=== PATIENT | female | born 1965 | race Caucasian/White ===

== ENCOUNTER 2021-06-25 23:14 | Emergency (ER) | payer OTHER, MEDICARE, SELFPAY ==
[2021-06-25 23:15] VITALS: BP 147/96; PULSE 89; RESP 16; TEMP 36.6; O2SAT 98; BMI 33.2
[2021-06-25 23:20] VITALS: BMI 33.2
--- NOTE | 2021-06-25 23:21 | XR_ITS ---
PROCEDURE INFORMATION: Exam: XR Left Wrist Exam date and time: 06/25/2021 11:27 PM Age: 55 years old Clinical indication: Injury or trauma; Fall; Sprain or strain; Wrist; Left; Additional info: Fall injury pain in wrist TECHNIQUE: Imaging protocol: XR Left wrist. Views: 3 or more views. COMPARISON: No relevant prior studies available. FINDINGS: Bones/joints: On the lateral view a lucency is noted in the region of the triquetral bone suspicious for a fracture without significant displacement. Subchondral lucency with a thin sclerotic margin is noted at the distal radius with irregularity suggestive of a prior injury. The scapholunate interval is somewhat prominent but not significantly widened. No other definite fractures are identified. Soft tissues: Soft tissue swelling is present without foreign body or abnormal gas. IMPRESSION: Acute appearing lucency of the triquetrum bone on the lateral view suspicious for fracture. Findings suggestive of prior trauma to the distal radius with some irregularity that might represent an acute on chronic injury. Findings were discussed with EDGAR SAXENA at 06/26/2021 1:17 AM EDT.
--- NOTE | 2021-06-25 23:22 | XR_ITS ---
PROCEDURE INFORMATION: Exam: XR Left Forearm Exam date and time: 06/25/2021 11:30 PM Age: 55 years old Clinical indication: Injury or trauma; Fall; Sprain or strain; Arm, lower; Left; Additional info: Fall injury pain in wrist TECHNIQUE: Imaging protocol: XR Left forearm. Views: 2 views. COMPARISON: CR XR WRIST LT MIN 3V 06/25/2021 11:27 PM FINDINGS: Bones/joints: Proximally the radius and ulna are intact with no acute fracture or dislocation identified. Distally there is subchondral lucency of the distal radius with some sclerosis better evaluated on the concurrent wrist series. Soft tissues: Normal. IMPRESSION: Subchondral lucency and sclerosis of the distal radius with some irregularity may represent an acute on chronic injury. See concurrent wrist report for further details
[2021-06-25 23:30] VITALS: BP 140/91; PULSE 84; O2SAT 99
--- NOTE | 2021-06-25 23:35 | PC.NURSE ---
Pt gone to RAD
--- NOTE | 2021-06-25 23:42 | PC.NURSE ---
Pt back from RAD
--- NOTE | 2021-06-25 23:48 | [facility].EDUPEXT ---
ED Disposition Clinical Impression: Sprain and strain of wrist Fracture of triquetrum Qualifiers: Encounter type: initial encounter Fracture type: closed Fracture alignment: displaced Laterality: left Qualified Code(s): S62.112A - Displaced fracture of triquetrum [cuneiform] bone, left wrist, initial encounter for closed fracture Disposition: Home, Self-Care Condition on Discharge: Good Instructions: DI for a Hand Fracture Additional Instructions: wear splint and see pcp and ortho for follow up Referrals: Kaylee Garcia [Primary Care Provider] - - Critical Care Critical Care Time: No Attestation: On 06/25/21, the high probability of a clinically significant, sudden or life threatening deterioration of the following system(s) required my full and direct attention, intervention and personal management. The time I documented below is in addition to time spent performing reported procedures but includes the following listed in this critical care notation. Medical Decision Making - Medical Records Medical records reviewed: Yes: I reviewed the patient's medical records. - Harvey Inquiry Pt receiving controlled substance: No Vital Signs: 06/25/21 23:15 06/25/21 23:30 06/26/21 00:00 Temperature 97.8 F Temperature Source Oral Pulse Rate 84 84 Pulse Rate [Left Radial] 89 Respiratory Rate 16 Blood Pressure 140/91 H 120/87 Blood Pressure [Right Arm] 147/96 H Blood Pressure Mean 107 98 Blood Pressure Mean [Right Arm] 113 02 Sat by Pulse Oximetry 98 99 100 Oxygen Delivery Method Room Air 06/26/21 01:00 Temperature Temperature Source Pulse Rate 81 Pulse Rate [Left Radial] Respiratory Rate Blood Pressure 146/84 H Blood Pressure [Right Arm] Blood Pressure Mean Blood Pressure Mean [Right Arm] 02 Sat by Pulse Oximetry 99 Oxygen Delivery Method Room Air Orders (Tests/Meds): ED MEDICATIONS Discontinued Medications Generic Name Dose Route Start Last Admin Trade Name Freq PRN Reason Stop Dose Admin Acetaminophen 1,000 mg 06/26/21 00:11 06/26/21 00:13 Acetaminophen 500mg Tab PO 06/26/21 00:12 1,000 mg ONCE ONE Administration Ketorolac Tromethamine 30 mg 06/26/21 00:15 06/26/21 00:17 Ketorolac 30mg/Ml Vial IM 06/26/21 00:16 30 mg ONCE ONE Administration - Radiology Data #1 Image(s): Forearm, Wrist Image Reviewed: Yes I reviewed the patient's radiology image Preliminary Findings: Abnormal - CT Data CT Scan: Other (wrist) Time Received: 02:[address] Reviewed: Yes: I have viewed the radiologist's interpretation Preliminary Findings: Abnormal (fx triquetrum ) Medical Decision Narrative: has acute lt triquetrum fx and will splint and refer to ortho Upper Extremity HPI - General Chief Complaint: Extremity Injury, Upper Stated Complaint: AO 06/25/212029 Fell injury left wrist Time Seen by Provider: 06/25/21 23:30 Mode of Arrival: Ambulatory Limitations: No Limitations Description of Symptoms (Recalled from ER Triage Doc. by RN): FELL AND LANDED ON WRIST AT APPROX 2030. RATES PAIN 9/10 DULL ACHE. PT ENCOURAGED TO ELEVATE AND ICE PACK PROVIDED. - History of Present Illness HPI narrative: fall with acute lt wrist injury complaint: injury to: left, wrist Onset (ago): hour(s) Other Extremity Injury: Left: wrist Other injuries: none Handedness: right Place: home Severity: moderate Exacerbating factors: movement of extremity Context: fall Associated symptoms: denies other symptoms - Related Data Allergies Allergy/AdvReac Type Severity Reaction Status Date / Time No Known Allergies Allergy Verified 06/25/21 23:21 [facility] History - Hepatitis A Screen Drug use history?: No High risk sexual behaviors?: No History of sexually transmitted infection?: No Currently employed?: No Childcare worker?: No Do you have indoor plumbing?: Yes Do you have electricity?: Yes Attestation statement:: This patient has been screened for H
[2021-06-26] VITALS: BP 120/87; PULSE 84; O2SAT 100
[2021-06-26 01:00] VITALS: BP 146/84; PULSE 81; O2SAT 99
--- NOTE | 2021-06-26 01:18 | CT_ITS ---
PROCEDURE INFORMATION: Exam: CT Left Upper Extremity Without Contrast, Wrist Exam date and time: 06/26/2021 1:24 AM Age: 55 years old Clinical indication: Injury or trauma; Fall; Sprain or strain; Wrist; Left; Additional info: Fall left wrist pain TECHNIQUE: Imaging protocol: CT of the Left upper extremity without contrast was performed. Exam focused on the wrist. 3D rendering (Not supervised by radiologist): MIP and/or 3D reconstructed images were created by the technologist. Radiation optimization: All CT scans at this facility use at least one of these dose optimization techniques: automated exposure control; mA and/or kV adjustment per patient size (includes targeted exams where dose is matched to clinical indication); or iterative reconstruction. COMPARISON: CR XR WRIST LT MIN 3V 06/25/2021 11:27 PM FINDINGS: Bones/joints: Acute fracture of the dorsal aspect of the triquetrum is noted consistent with the radiographs. Approximately 2 mm of separation of the fracture fragment from the parent bone is noted. Irregularity is noted affecting the lateral aspect of the distal radius and along the articular surface likely on the basis of prior injury. Some subchondral cystic changes also noted of the scaphoid. No additional acute fractures are identified. Soft tissues: Soft tissue swelling is present without foreign body or abnormal gas. IMPRESSION: Dorsal triquetrum fracture. 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
--- NOTE | 2021-06-26 01:25 | PC.NURSE ---
pt gone to RAD
--- NOTE | 2021-06-26 01:30 | PC.NURSE ---
Pt back from RAD
[2021-06-26 02:04] VITALS: BP 148/92; PULSE 83; O2SAT 99
--- NOTE | 2021-06-26 02:04 | PC.NURSE ---
Velcro splint applied to left wrist and pt placed in a sling
[2021-06-26 02:42] VITALS: BP 143/92; PULSE 83; RESP 16; TEMP 36.6; O2SAT 98
== END 2021-06-26 03:01 | disposition home or self-care (01) ==
PROVIDERS: Emergency Provider Emergency Medicine; PCP Nurse Practitioner Family
DX: S62.112A Displaced fracture of triquetrum [cuneiform] bone, left wrist, initial encounter for closed fracture (principal); W01.0XXA Fall on same level from slipping, tripping and stumbling without subsequent striking against object, initial encounter; Y92.019 Unspecified place in single-family (private) house as the place of occurrence of the external cause
CPT/HCPCS: 73090; 73110; 73200; 99284